=== PATIENT | female | born 1975 | race Two or more races ===

== ENCOUNTER 2020-03-16 02:16 | Emergency (ER) | payer OTHER ==
[~2020-03-16] VITALS: Ht 157.5 cm; Wt 57.2 kg
[2020-03-16] MEDS ORDERED: SINGULAIR5 MG (02:36)
[2020-03-16] MEDS ORDERED: ZYRTEC10 M3 (02:36)
[2020-03-16] MEDS ORDERED: FLONASE ALLERG9.9 ML NASAL (09:06)
[2020-03-16] MEDS ORDERED: PHENERGAN25 MG PO (09:06)
== END 2020-03-16 09:18 | disposition home or self-care (01) ==
LOC: ER 02:16
DX: K29.00 Acute gastritis without bleeding (principal); R11.2 Nausea with vomiting, unspecified; J01.80 Other acute sinusitis; Z03.818 Encounter for observation for suspected exposure to other biological agents ruled out